=== PATIENT | male | born 1955 | race Caucasian/White ===

== ENCOUNTER 2022-11-10 11:01 | Observation (INO) | payer MEDICARE, OTHER ==
[2022-11-10] MEDS ORDERED: ONDANSETRON 4 MG/2 ML VIAL IVP STA (12:06)
[2022-11-10] MEDS ORDERED: KETOROLAC 15 MG/ML 1 ML VIAL IVP STA ×2 (12:06→17:23)
--- NOTE | 2022-11-10 12:12 | ED ---
General Adult HPI - General Chief complaint: Nausea/Vomiting/Diarrhea Stated complaint: Congestions, nausea, Time Seen by Provider: 11/10/22 11:31 Source: patient, RN notes reviewed, old records reviewed Mode of arrival: ambulatory Limitations: no limitations - History of Present Illness Initial comments: This is a nontoxic appearing 67-year-old male that presents to the emergency room sent by urgent care for complaints of nausea, vomiting, abdominal fullness, back pain, cough and shortness of breath that started today. Patient states he just returned from a vacation in [place] Tuesday and had a 7 hour flight. States he did wear compression socks. Does have left leg swelling but states he normally has bilateral lower extremity swelling. Denies any chest pain. No fevers. No known sick contacts. -: days(s) (1) Location: back, abdomen Severity scale (1-10): 5 Consistency: constant Improves with: none Associated Symptoms: cough, nausea/vomiting, shortness of breath Treatments Prior to Arrival: other (sent by urgent care) - Related Data Home Medications Medication Instructions Recorded Confirmed No Known Home Medications 11/10/22 11/10/22 Allergies Allergy/AdvReac Type Severity Reaction Status Date / Time No Known Allergies Allergy Verified 11/10/22 15:47 Review of Systems ROS Statement: Those systems with pertinent positive or pertinent negative responses have been documented in the HPI. ROS Other: All systems not noted in ROS Statement are negative. Past Medical History Past Medical History: No Reported History History of Any Multi-Drug Resistant Organisms: None Reported Past Surgical History: No Surgical Hx Reported Past Psychological History: No Psychological Hx Reported Smoking Status: Never smoker Past Alcohol Use History: Occasional Past Drug Use History: None Reported General Exam Limitations: no limitations General appearance: alert, in no apparent distress Head exam: Present: atraumatic Eye exam: Present: normal appearance. Absent: scleral icterus, conjunctival injection, periorbital swelling, periorbital tenderness ENT exam: Present: mucous membranes moist Neck exam: Present: full ROM. Absent: tenderness, meningismus Respiratory exam: Present: normal lung sounds bilaterally. Absent: respiratory distress, accessory muscle use Cardiovascular Exam: Present: regular rate GI/Abdominal exam: Present: soft, normal bowel sounds. Absent: distended, tenderness, guarding, rebound, rigid Extremities exam: Present: normal capillary refill, pedal edema (Bilateral lower extremity swelling left greater than right no tenderness.). Absent: calf tenderness Left Lower Leg exam: Present: full ROM, swelling. Absent: tenderness Ankle exam: Present: swelling Foot/Toe exam: Present: swelling Neurovascular tendon exam: Present: no vascular compromise. Absent: abnormal cap refill, extremity cold to touch, pallor, foot drop Back exam: Present: normal inspection, full ROM. Absent: tenderness, CVA tenderness (R), CVA tenderness (L), rash noted Neurological exam: Present: alert, oriented X3 Psychiatric exam: Present: normal affect, normal mood Skin exam: Present: warm, dry, normal color. Absent: cyanosis, diaphoretic, petechiae, pallor Course Vital Signs 11/10/22 11/10/22 11/10/22 11:07 12:13 14:25 Temperature 97.3 F L Pulse Rate 80 81 82 Respiratory 16 19 19 Rate Blood Pressure 178/121 176/92 165/91 O2 Sat by Pulse 96 96 98 Oximetry 11/10/22 16:50 Temperature 97.8 F Pulse Rate 83 Respiratory 18 Rate Blood Pressure 174/105 O2 Sat by Pulse 96 Oximetry EKG Findings - EKG Comments: EKG Findings:: EKG interpreted by me shows sinus rhythm with a ventricular rate of 80, [place] interval 0.179, QRS 0.109, QTC 0.403 Medical Decision Making - Medical Decision Making Patient was given Toradol and Zofran with resolution of his symptoms. CBC shows no evidence of leukocytosis. Electrolytes show blood glucose of 131. D-dimer 1.61. Troponin -0.012. EKG interpreted by me shows sinus rhythm with a ventricular rate of 80, [place] interval 0.179, QRS 0.109, QTC 0.403, left axis deviation. Influenza and coronavirus swabs negative. Chest x-ray interpreted by me shows no focal consolidation, trachea is midline. Radiologist interpretation no acute cardiopulmonary disease or process. Ultrasound of the left lower extremity shows a DVT of the left common femoral vein, femoral vein, popliteal vein and proximal calf veins. Due to patient's positive d-dimer and DVT with complaints of occasional cough, CTA was performed showing a nonobstructing right lower lobe pulmonary embolism. Patient was started on heparin. He is agreeable to admission. Case discussed with Dr. Bhat. Was pt. sent in by a medical professional or institution (, PA, HOME HEALTH PHYSICAL THERAPIST, urgent care, hospital, or [facility]...) When possible be specific @ -[No] Did you speak to anyone other than the patient for history (EMS, parent, family, police, friend...)? What history was obtained from this source @ -[No] Did you review nursing and triage notes (agree or disagree)? Why? @ -[I reviewed and agree with nursing and triage notes] Were old charts reviewed (outside hosp., previous admission, EMS record, old EKG, old radiological studies, urgent care reports/EKG's, [facility] records)? Report findings @ -[No old charts were reviewed] Differential Diagnosis (chest pain, altered mental status, abdominal pain women, abdominal pain men, vaginal bleeding, weakness, fever, dyspnea, syncope, headache, dizziness, GI bleed, back pain, seizure, CVA, palpatations, mental health, musculoskeletal)? @ -Differential Dyspnea: Coronary syndrome, arrhythmia, tamponade, asthma, COPD, pulmonary embolism, pneumonia, pneumothorax, pulmonary effusion, anaphylaxis, diabetic ketoacidosis, flailed chest, pulmonary contusion, diaphragmatic rupture, anemia, neuromuscular, this is not meant to be an all-inclusive list. EKG interpreted by me (3pts min.). @ -[As above] X-rays interpreted by me (1pt min.). @ -yeS as above CT interpreted by me (1pt min.). @ -no U/S interpreted by me (1pt. min.). @ -no What testing was considered but not performed or refused? (CT, X-rays, U/S, labs)? Why? @ -[None] What meds were considered but not given or refused? Why? @ -[None] Did you discuss the management of the patient with other professionals (professionals i.e. , PA, HOME HEALTH PHYSICAL THERAPIST, lab, RT, psych nurse, social services technician, oil heater installer, teacher, booking officer, outsole caser)? Give summary @ -[No] Was smoking cessation discussed for >3mins.? @ -[No] Was critical care preformed (if so, how long)? @ -[No] Were there social determinants of health that impacted care today? How? (Homelessness, low income, unemployed, alcoholism, drug addiction, transportation, low edu. Level, literacy, decrease access to med. care, assisted, rehab)? @ -[No] Was there de-escalation of care discussed even if they declined (Discuss DNR or withdrawal of care, Hospice)? DNR status @ -[No] What co-morbidities impacted this encounter? (DM, HTN, Smoking, COPD, CAD, Cancer, CVA, ARF, Chemo, Hep., AIDS, mental health diagnosis, sleep apnea, morbid obesity)? @ -[None] Was patient admitted / discharged? Hospital course, mention meds given and route, prescriptions, significant lab abnormalities, going to OR and other pertinent info. @ -Admitted Undiagnosed new problem with uncertain prognosis? @ -[No] Drug Therapy requiring intensive monitoring for toxicity (Heparin, Nitro, Insulin, Cardizem)? @ -yes heparin Were any procedures done? @ -[No] Diagnosis/symptom? @ -DVT left leg, right pulmonary embolism Acute, or Chronic, or Acute on Chronic? @ -Acute Uncomplicated (without systemic symptoms) or Complicated (systemic symptoms)? @ -Complicated Side effects of treatment? @ -[No] Exacerbation, Progression, or Severe Exacerbation? @ -[No] Poses a threat to life or bodily function? How? (Chest pain, [place], [place], pneumonia, PE, COPD, DKA, ARF, appy, cholecystitis, CVA, Diverticulitis, Homicidal, S uicidal, threat to staff... and all critical care pts) @ -Yes dvt and pulmonary embolism could result in cardiopulmonary arrest and - Lab Data Result diagrams: 11/10/22 12:20 11/10/22 12:20 Lab Results 11/10/22 11/10/22 11/10/22 Range/Units 12:20 12:20 12:20 WBC 6.5 (3.8-10.6) k/uL RBC 5.59 (4.30-5.90) m/uL Hgb 16.4 (13.0-17.5) gm/dL Hct 49.4 (39.0-53.0) % MCV 88.4 (80.0-100.0) fL MCH 29.4 (25.0-35.0) pg MCHC 33.2 (31.0-37.0) g/dL RDW 13.0 (11.5-15.5) % Plt Count 201 (150-450) k/uL MPV 7.9 Neutrophils % 74 % Lymphocytes % 19 % Monocytes % 5 % Eosinophils % 1 % Basophils % 0 % Neutrophils # 4.8 (1.3-7.7) k/uL Lymphocytes # 1.2 (1.0-4.8) k/uL Monocytes # 0.3 (0-1.0) k/uL Eosinophils # 0.1 (0-0.7) k/uL Basophils # 0.0 (0-0.2) k/uL PT 10.0 (9.0-12.0) sec INR 0.9 (<1.2) APTT 24.7 (22.0-30.0) sec D-Dimer 1.60 H (<0.60) mg/L FEU Sodium 139 (137-145) mmol/L Potassium 4.4 (3.5-5.1) mmol/L Chloride 101 (98-107) mmol/L Carbon Dioxide 27 (22-30) mmol/L Anion Gap 11 mmol/L BUN 17 (9-20) mg/dL Creatinine 0.83 (0.66-1.25) mg/dL Est GFR (CKD-EPI)AfAm >90 (>60 ml/min/1.73 sqM) Est GFR (CKD-EPI)NonAf >90 (>60 ml/min/1.73 sqM) Glucose 131 H (74-99) mg/dL Plasma Lactic Acid Chuck (0.7-2.0) mmol/L Calcium 9.0 (8.4-10.2) mg/dL Total Bilirubin 0.6 (0.2-1.3) mg/dL AST 25 (17-59) U/L ALT 23 (4-49) U/L Alkaline Phosphatase 139 H (38-126) U/L Troponin I (0.000-0.034) ng/mL Total Protein 7.7 (6.3-8.2) g/dL Albumin 4.4 (3.5-5.0) g/dL Amylase 47 (30-110) U/L Lipase 101 (23-300) U/L Influenza Type A (PCR) (Not Detectd) Influenza Type B (PCR) (Not Detectd) RSV (PCR) (Not Detectd) SARS-CoV-2 (PCR) (Not Detectd) 11/10/22 11/10/22 11/10/22 Range/Units 12:20 12:20 12:20 WBC (3.8-10.6) k/uL RBC (4.30-5.90) m/uL Hgb (13.0-17.5) gm/dL Hct (39.0-53.0) % MCV (80.0-100.0) fL MCH (25.0-35.0) pg MCHC (31.0-37.0) g/dL RDW (11.5-15.5) % Plt Count (150-450) k/uL MPV Neutrophils % % Lymphocytes % % Monocytes % % Eosinophils % % Basophils % % Neutrophils # (1.3-7.7) k/uL Lymphocytes # (1.0-4.8) k/uL Monocytes # (0-1.0) k/uL Eosinophils # (0-0.7) k/uL Basophils # (0-0.2) k/uL PT (9.0-12.0) sec INR (<1.2) APTT (22.0-30.0) sec D-Dimer (<0.60) mg/L FEU Sodium (137-145) mmol/L Potassium (3.5-5.1) mmol/L Chloride (98-107) mmol/L Carbon Dioxide (22-30) mmol/L Anion Gap mmol/L BUN (9-20) mg/dL Creatinine (0.66-1.25) mg/dL Est GFR (CKD-EPI)AfAm (>60 ml/min/1.73 sqM) Est GFR (CKD-EPI)NonAf (>60 ml/min/1.73 sqM) Glucose (74-99) mg/dL Plasma Lactic Acid Chuck 2.0 (0.7-2.0) mmol/L Calcium (8.4-10.2) mg/dL Total Bilirubin (0.2-1.3) mg/dL AST (17-59) U/L ALT (4-49) U/L Alkaline Phosphatase (38-126) U/L Troponin I <0.012 (0.000-0.034) ng/mL Total Protein (6.3-8.2) g/dL Albumin (3.5-5.0) g/dL Amylase (30-110) U/L Lipase (23-300) U/L Influenza Type A (PCR) Not Detected (Not Detectd) Influenza Type B (PCR) Not Detected (Not Detectd) RSV (PCR) Not Detected (Not Detectd) SARS-CoV-2 (PCR) Not Detected (Not Detectd) Critical Care Time Critical Care Time: Yes Total Critical Care Time: 32 (Heparin for DVT/ PE) Disposition Clinical Impression: Left femoral vein DVT, Pulmonary embolus, right Disposition: ADMITTED IP TO THIS HOSP Decision Date: 11/10/22
[2022-11-10 12:38] LABS: Basophils % (A) 0 %; Eosinophils # (A) 0.1 k/uL (0-0.7); Eosinophils % (A) 1 %; HCT 49.4 % (39.0-53.0); HGB 16.4 gm/dL (13.0-17.5); Lymphocytes # (A) 1.2 k/uL (1.0-4.8); Lymphocytes % (A) 19 %; MCH 29.4 pg (25.0-35.0); MCHC 33.2 g/dL (31.0-37.0); MCV 88.4 fL (80.0-100.0); Mean Platelet Volume 7.9; Monocytes # (A) 0.3 k/uL (0-1.0); Monocytes % (A) 5 %; Neutrophils # (A) 4.8 k/uL (1.3-7.7); Neutrophils % (A) 74 %; Platelet Count 201 k/uL (150-450); RBC 5.59 m/uL (4.30-5.90); WBC 6.5 k/uL (3.8-10.6)
--- NOTE | 2022-11-10 12:49 | XR ---
EXAMINATION TYPE: XR chest 2V DATE OF EXAM: 11/10/2022 12:36 PM COMPARISON: None TECHNIQUE: XR chest 2V Frontal and lateral views of the chest. CLINICAL INDICATION:Male, 67 years old with history of abdominal pain; FINDINGS: Lungs/Pleura: There is no evidence of pleural effusion, focal consolidation, or pneumothorax. Pulmonary vascularity: Unremarkable. Heart/mediastinum: Cardiomediastinal silhouette is prominent in size. Musculoskeletal: No acute osseous pathology. IMPRESSION: No acute cardiopulmonary disease/process.
[2022-11-10 12:51] LABS: ALT 23 U/L (4-49); AST 25 U/L (17-59); African American GFR (CKD) >90 (>60 ml/min/1.73 sqM); Albumin 4.4 g/dL (3.5-5.0); Alkaline Phosphatase 139 U/L (38-126); Amylase 47 U/L (30-110); Anion Gap 11 mmol/L; Blood Urea Nitrogen 17 mg/dL (9-20); Carbon Dioxide 27 mmol/L (22-30); Chloride 101 mmol/L (98-107); Glucose 131 mg/dL (74-99); Lipase 101 U/L (23-300); Non-African American GFR(CKD) >90 (>60 ml/min/1.73 sqM); Potassium 4.4 mmol/L (3.5-5.1); Sodium 139 mmol/L (137-145); Total Bilirubin 0.6 mg/dL (0.2-1.3); Total Protein 7.7 g/dL (6.3-8.2)
[2022-11-10 12:56] LABS: INR 0.9 (<1.2)
[2022-11-10 12:57] LABS: Partial Thromboplastin Time 24.7 sec (22.0-30.0)
--- NOTE | 2022-11-10 13:55 | US ---
EXAMINATION TYPE: US venous doppler duplex LE LT DATE OF EXAM: 11/10/2022 12:08 PM COMPARISON: NONE CLINICAL INDICATION: Male, 67 years old with history of r/o dvt swelling; Swelling x 8 days. No hx of DVT. Patient does not take blood thinners. SIDE PERFORMED: Left TECHNIQUE: The lower extremity deep venous system is examined utilizing real time linear array sonog fawn with graded compression, doppler sonography and color-flow sonography. VESSELS IMAGED: Common Femoral Vein Deep Femoral Vein Greater Saphenous Vein * Femoral Vein Popliteal Vein Small Saphenous Vein * Proximal Calf Veins (* superficial vessels) Left Leg: Color defect seen within CFV, FV, popliteal vein, and prox calf veins. These veins appear to compress incompletely. IMPRESSION: Deep venous thrombosis of the left common femoral vein, femoral vein, popliteal vein, and proximal ca lf veins. Findings called to and discussed with ASHLIE Nair at 1:52 PM on 11/10/2022.
[2022-11-10] MEDS ORDERED: APIXABAN 5 MG TAB PO STA (14:04)
--- NOTE | 2022-11-10 14:38 | CT ---
CT CHEST FOR PULMONARY EMBOLISM. EXAMINATION TYPE: CT chest angio for PE DATE OF EXAM: 11/10/2022 INDICATION: h/o DVT, r/o PE CT DLP: 675.4 mGycm, Automated exposure control for dose reduction was used. CONTRAST: Patient injected with 100 mL of Isovue 370. COMPARISON: None TECHNIQUE: CT of the chest is performed on a spiral scan at 2 mm thick sections. Study is performed with intravenous contrast timed for evaluation for pulmonary embolism. This will limit additional po rtions of the evaluation. 3-D MIP images reconstructed by the technologist are reviewed on the compu ter in the coronal and sagittal planes. FINDINGS: There is some nonocclusive filling defect within the right lower lobe pulmonary arteries suggestive f or pulmonary embolism.01 No mediastinal or hilar adenopathy enlarged by CT criteria is evident. The ascending aorta diameter at the level of the main pulmonary artery is 3.6 cm. The main pulmonary artery diameter at the bifur cation is 2.6 cm. Lung windows are clear. Limited CT section through the upper abdomen. Gallstones are noted. IMPRESSIONS: 1. 1. Nonobstructing right lower lobe pulmonary embolism.
[2022-11-10] MEDS ORDERED: HEPARIN SODIUM 1,000 UN/ML (10ML VL) IV PRN (14:42)
[2022-11-10] MEDS ORDERED: HEPARIN SODIUM 1,000 UN/ML (10ML VL) IV ONE (14:42)
[2022-11-10] MEDS ORDERED: NALOXONE 0.4 MG/ML 1 ML VIAL IV PRN (14:55)
[2022-11-10] MEDS: HEPARIN SOD,PORK IN 0.45% NACL 25,000 UNIT in 0.45% NACL 1 250ML.BAG IV SCH (15:00)
[2022-11-10] MEDS ORDERED: ACETAMINOPHEN TAB 325 MG TAB PO PRN (15:06)
--- NOTE | 2022-11-10 18:56 | P.HPIM ---
History of Present Illness H&P Date: 11/10/22 67-year-old male with no significant past medical history presents ED for left lower extremity swelling, chest pain and nausea and vomiting since returning from his trip to [facility] on Tuesday. Patient reports a 7 hour flight. He reports left lower extremity swelling that has been ongoing for the past week. He reports some pain in his calf. Today he started to experience back pain, nausea and chest pain which prompted him to come to the ED. His pain is currently 5 out of 10 in severity. He denies any headache, vomiting, fever or chills, cough, shortness of breath, palpitations, changes in urination or bowel habits. No changes in appetite or weight. He denies any dizziness, numbness/weakness/tingling of the extremities. In the ED, is noted to be hypertensive with BP as high as 176/102. CBC was unremarkable. D-dimer was elevated at 1.6. Correlation panel within normal limits. CMP showed glucose 131 and alkaline phosphatase 139. Troponin was less than 0.012. Amylase and lipase was negative. Influenza, RSV and COVID-[address] chest showed nonobstructing right lower lobe pulmonary embolus. Left lower extremity Doppler showed DVT of the left common femoral vein, femoral vein, popliteal vein and proximal calf veins. Chest x-ray was negative. EKG showed sinus rhythm. Patient is admitted for treatment of PE and DVT. Pertinent positives and negatives as discussed in HPI, a complete review of systems was performed and all other systems are negative. General: non toxic, no distress, appears at stated age Derm: warm, dry Head: atraumatic, normocephalic, symmetric Eyes: EOMI, no lid lag, anicteric sclera Cardiovascular: S1S2 reg, no murmur Lungs: CTA bilateral, no rhonchi, no rales , no accessory muscle use Ext: no gross muscle atrophy, significant left lower extremity edema, no contractures Neuro: no focal neuro deficits Psych: Alert, oriented, appropriate affect Pulmonary embolus DVT Morbid obesity Based on my assessment of this patient, this patient meets a high complexity level of care. Patient has an acute diagnosis of extensive DVT and PE that poses a threat to life or bodily function. Given his recent 7 hour flight this is likely provoked PE. He reports no family history of clotting disorder. He does not smoke cigarettes. Patient will be continued on a heparin drip at 18 units per kilogram per hour. Toradol 60 mg IV every 6 hours as needed for pain. Obtain echocardiogram. Order hemoglobin A1c and lipid panel. Anticipate discharge home tomorrow if workup is benign and his pain is well-controlled. Heparin drip for DVT prophylaxis. Patient names his decision maker if he can't make decisions for himself. Patient would like to be full code. I have reviewed the following marketing operations consultant notes: None. I have reviewed the results of the following tests: CBC was unremarkable. D-dimer was elevated at 1.6. Correlation panel within normal limits. CMP showed glucose 131 and alkaline phosphatase 139. Troponin was less than 0.012. Amylase and lipase was negative. Influenza, RSV and COVID-[address] chest showed nonobstructing right lower lobe pulmonary embolus. Left lower extremity Doppler showed DVT of the left common femoral vein, femoral vein, popliteal vein and proximal calf veins. I have ordered the following tests: Hemoglobin A1c and lipid panel. APTT. Echocardiogram. I have discussed the care of this patient with the following independent historian: None. I have independently interpreted the following test below: Chest x-ray was negative. EKG showed sinus rhythm. I have discussed the management of this patient with the following physician: Case was discussed with the ED physician and decision made to admit the patient for treatment and workup of PE and DVT. This patient has a high risk of morbidity due to the following reasons: Patient is currently on heparin drip which involves daily monitor of APTT. Past Medical History Past Medical History: No Reported History History of Any Multi-Drug Resistant Organisms: None Reported Past Surgical History: No Surgical Hx Reported Past Anesthesia/Blood Transfusion Reactions: No Reported Reaction Past Psychological History: No Psychological Hx Reported Smoking Status: Never smoker Past Alcohol Use History: Occasional Past Drug Use History: None Reported Medications and Allergies Home Medications Medication Instructions Recorded Confirmed Type No Known Home Medications 11/10/22 11/10/22 History Allergies Allergy/AdvReac Type Severity Reaction Status Date / Time No Known Allergies Allergy Verified 11/10/22 15:47 Physical Exam Vitals: Vital Signs Temp Pulse Pulse Resp BP BP Pulse Ox 11/10/22 18:30 166/97 11/10/22 16:53 98.2 F 87 18 176/102 96 11/10/22 16:50 97.8 F 83 18 174/105 96 11/10/22 14:25 82 19 165/91 98 11/10/22 12:13 81 19 176/92 96 11/10/22 11:07 97.3 F L 80 16 178/121 96 Intake and Output 11/10/22 11/10/22 11/10/22 06:59 14:59 22:59 Intake Total 118 Balance 118 Intake: Oral 118 Other: Weight 117.934 kg 117.934 kg Results CBC & Chem 7: 11/10/22 12:20 11/10/22 12:20 Labs: Abnormal Lab Results - Last 24 Hours (Table) 11/10/22 11/10/22 Range/Units 12:20 12:20 D-Dimer 1.60 H (<0.60) mg/L FEU Glucose 131 H (74-99) mg/dL Alkaline Phosphatase 139 H (38-126) U/L Thrombosis Risk Factor Assmnt - Choose All That Apply Any of the Below Risk Factors Present?: Yes Each Factor Represents 1 point: Obesity (BMI >25) Other Risk Factors: Yes Each Risk Factor Represents 2 Points: Age 61-74 years Other congenital or acquired thrombophilia - If yes, enter type in comment: No Thrombosis Risk Factor Assessment Total Risk Factor Score: 3 Thrombosis Risk Factor Assessment Level: Moderate Risk
[2022-11-10] MEDS ORDERED: Apixaban Starter Pk for VTE 5 MG TAB PO SCH (21:00)
[2022-11-10] MEDS: KETOROLAC 15 MG/ML 1 ML VIAL IVP PRN (22:52)
[2022-11-11] MEDS: HEPARIN SOD,PORK IN 0.45% NACL 25,000 UNIT in 0.45% NACL 1 250ML.BAG IV SCH (04:50)
[2022-11-11] MEDS: KETOROLAC 15 MG/ML 1 ML VIAL IVP PRN ×2 (06:36→14:26)
[2022-11-11] MEDS ORDERED: APIXABAN 5 MG TAB PO SCH (09:45)
[2022-11-11 11:41] LABS: Chol/HDL Ratio 3.25 Ratio; LDL Cholesterol,Calculated 93.6 mg/dL (0.0-131.0); VLDL Calculation 13.02 mg/dL (5.00-40.00)
[2022-11-11 12:19] LABS: Basophils # (A) 0.01 X 10*3/uL (0.00-0.10); Basophils % (A) 0.1 %; Eosinophils # (A) 0.01 X 10*3/uL (0.04-0.35); Eosinophils % (A) 0.1 %; HCT 46.3 % (39.6-50.0); HGB 15.7 g/dL (13.0-17.0); Immature Grans, Automated 0.8 %; Lymphocytes # (A) 0.86 X 10*3/uL (0.90-5.00); Lymphocytes % (A) 9.5 %; MCH 30.2 pg (27.0-32.0); MCHC 33.9 g/dL (32.0-37.0); Monocytes # (A) 0.68 X 10*3/uL (0.20-1.00); Monocytes % (A) 7.5 %; NRBC Per 100 WBC 0 /100 WBCS (0.0-0.0); Neutrophils # (A) 7.46 X 10*3/uL (1.80-7.70); Platelet Count 173 X 10*3/uL (140-440); RDW 12.9 % (11.5-14.5); WBC 9.09 X 10*3/uL (4.50-10.00)
--- NOTE | 2022-11-11 12:50 | CA ---
Transthoracic Echo Report Name: Chalo Taveras Age: 67 Gender: M : 1955 Exam Date: 11/11/2022 07:24 Exam Location: [facility] Ht (in): 74 Wt (lb): 260 Ordering Physician: Virginia Patel MD Attending/Referring Phys: Sas Developer Eamon Navarro RDCS Procedure CPT: Indications: PE Cardiac Hx: Obesity Technical Quality: Fair Contrast 1: Total Dose (mL): Contrast 2: Total Dose (mL): MEASUREMENTS (Male / Female) Normal Values 2D ECHO LV Diastolic Diameter PLAX 3.9 cm 4.2 - 5.9 / 3.9 - 5.3 cm LV Systolic Diameter PLAX 2.4 cm LV Fractional Shortening PLAX 38.9 % IVS Diastolic Thickness 1.1 cm 0.6 - 1.0 / 0.6 - 0.9 cm IVS Systolic Thickness 1.8 cm LVPW Diastolic Thickness 1.4 cm 0.6 - 1.0 / 0.6 - 0.9 cm LV Relative Wall Thickness 0.6 RV Internal Dim ED PLAX 4.3 cm LVOT Diameter 2.2 cm LA Systolic Diameter LX 3.7 cm 3.0 - 4.0 / 2.7 - 3.8 cm LV Diastolic Volume MOD BP 109.0 cm??? 67 - 155 / 56 - 104 cm??? LV Systolic Volume MOD BP 54.7 cm??? 22 - 58 / 19 - 49 cm??? LV Ejection Fraction MOD BP 49.8 % >= 55 % LV Stroke Volume MOD BP 54.3 cm??? LV Diastolic Volume MOD 4C 105.3 cm??? LV Systolic Volume MOD 4C 51.3 cm??? LV Ejection Fraction MOD 4C 51.3 % LV Stroke Volume MOD 4C 54.1 cm??? LV Diastolic Length 4C 7.8 cm LV Systolic Length 4C 6.6 cm LV Diastolic Volume MOD 2C 107.3 cm??? LV Systolic Volume MOD 2C 52.9 cm??? LV Ejection Fraction MOD 2C 50.7 % LV Stroke Volume MOD 2C 54.4 cm??? LV Diastolic Length 2C 8.2 cm LV Systolic Length 2C 7.5 cm Ascending Aorta Diameter 3.3 cm M-MODE Aortic Root Diameter MM 3.2 cm LA Systolic Diameter MM 4.2 cm LA Ao Ratio MM 1.3 AV Cusp Separation MM 2.1 cm DOPPLER AV Peak Velocity 118.9 cm/s AV Peak Gradient 5.7 mmHg MV Deceleration Emery 339.9 cm/s??? MR Peak Velocity 103.4 cm/s MR Peak Gradient 4.3 mmHg Mitral E Point Velocity 64.4 cm/s Mitral A Point Velocity 86.7 cm/s Mitral E to A Ratio 0.7 MV Deceleration Time 189.4 ms MV E' Velocity 7.8 cm/s Mitral E to MV E' Ratio 8.3 TR Peak Velocity 128.4 cm/s TR Peak Gradient 6.6 mmHg Right Ventricular Systolic Press 14.6 mmHg PV Peak Velocity 104.2 cm/s PV Peak Gradient 4.3 mmHg FINDINGS Left Ventricle Left ventricular ejection fraction is estimated at 55-60 %. Borderline left ventricular hypertrophy. Grade 1 diastolic dysfunction. Normal basal systolic function. Right Ventricle Normal right ventricular size and function. Right Atrium Normal right atrial size. Left Atrium Mild left atrial dilatation. Mitral Valve Mitral valve thickened. No mitral stenosis. Trace to mild mitral regurgitation. Aortic Valve Trileaflet aortic valve. No aortic valve stenosis or regurgitation. Tricuspid Valve Mild tricuspid regurgitation. Pulmonic Valve Pulmonic valve not well visualized. Pericardium Normal pericardium. No pericardial effusion. Echo free space anterior to the right ventricle likely represents a fat pad. Aorta Normal size aortic root and proximal ascending aorta. CONCLUSIONS Left ventricular ejection fraction 55-60% Borderline increased left ventricular wall thickness Normal right ventricular size and function Mildly dilated left atrium Trace to mild mitral regurgitation Mild tricuspid regurgitation No pericardial effusion Previewed by: Dr. Hemanth Fontaine DO (Electronically Signed) Final Date: 11 Nov 2022 12:49
[2022-11-11] MEDS ORDERED: hydroCHLOROthiazide 25 MG TAB PO SCH (13:30)
[2022-11-11 14:40] VITALS: BP 138/81; PULSE 107; RESP 20; TEMP 99.7
--- NOTE | 2022-11-11 14:41 | P.DS ---
Providers Date of admission: 11/10/22 15:46 Expected date of discharge: 11/11/22 Attending physician: Federico Aquino MD Primary care physician: Stated None Hospital Course: 67-year-old male with no significant past medical history presents ED for left lower extremity swelling, chest pain and nausea and vomiting since returning from his trip to [facility] on Tuesday. Patient reports a 7 hour flight. He reports left lower extremity swelling that has been ongoing for the past week. He reports some pain in his calf. Today he started to experience back pain, nausea and chest pain which prompted him to come to the ED. His pain is currently 5 out of 10 in severity. He denies any headache, vomiting, fever or chills, cough, shortness of breath, palpitations, changes in urination or bowel habits. No changes in appetite or weight. He denies any dizziness, numbness/weakness/tingling of the extremities. In the ED, is noted to be hypertensive with BP as high as 176/102. CBC was unremarkable. D-dimer was elevated at 1.6. Correlation panel within normal limits. CMP showed glucose 131 and alkaline phosphatase 139. Troponin was less than 0.012. Amylase and lipase was negative. Influenza, RSV and COVID-[address] chest showed nonobstructing right lower lobe pulmonary embolus. Left lower extremity Doppler showed DVT of the left common femoral vein, femoral vein, popliteal vein and proximal calf veins. Chest x-ray was negative. EKG showed sinus rhythm. Patient is admitted for treatment of PE and DVT. He was started on the Heparin drip and switched to Eliquis for discharge. Echocardiogram was ordered which showed preserved EF with G1DD. His BP was elevated in the 160-170s SBP for which he was started on HCTZ 25 mg PO QD. Lipid panel was within normal limits. A1c was 5.6. Patient was seen and examined this morning with his at bedside. He reports significant improvement in his chest pain. He denies any shortness of breath. Lower extremity swelling is slightly improved. Patient will be discharged home with the following instructions: Diet: Low salt Follow up with your PCP within 1-2 days of discharge. Take all medications as advised. Pertinent studies include echocardiogram, CT chest, chest x-ray, venous Doppler. General: non toxic, no distress, appears at stated age Derm: warm, dry Head: atraumatic, normocephalic, symmetric Eyes: EOMI, no lid lag, anicteric sclera Cardiovascular: S1S2 reg, no murmur Lungs: CTA bilateral, no rhonchi, no rales , no accessory muscle use Ext: no gross muscle atrophy, significant left lower extremity edema, no contractures Neuro: no focal neuro deficits Psych: Alert, oriented, appropriate affect Discharge diagnosis: Pulmonary embolus DVT Morbid obesity Hypertension, new diagnosis HFpEF, euvolemic, not in acute exacerbation The complex discharge took 35 minutes to complete. Patient Condition at Discharge: Stable Plan - Discharge Summary Discharge Rx Participant: No New Discharge Prescriptions: New HYDROcodone/APAP 5-325MG [[place] 5-325] 1 tab PO Q6HR PRN 3 Days #12 tab PRN Reason: Pain Apixaban [Eliquis Starter Pack (for VTE)] 5 - 10 mg PO DIRECTED 30 Days #1 each hydroCHLOROthiazide [Hydrodiuril] 25 mg PO DAILY #30 tab Ketorolac [Toradol] 10 mg PO Q6HR PRN #20 tab PRN Reason: Pain Discharge Medication List Apixaban [Eliquis Starter Pack (for VTE)] 5 - 10 mg PO DIRECTED 30 Days #1 each 11/11/22 [Rx] HYDROcodone/APAP 5-325MG [[place] 5-325] 1 tab PO Q6HR PRN 3 Days #12 tab 11/11/22 [Rx] Ketorolac [Toradol] 10 mg PO Q6HR PRN #20 tab 11/11/22 [Rx] hydroCHLOROthiazide [Hydrodiuril] 25 mg PO DAILY #30 tab 11/11/22 [Rx] Follow up Appointment(s)/Referral(s): Cristiano Valdivia MD [REFERRING] - 1 Week None,Stated [Primary Care Provider] - 1-2 days Activity/Diet/Wound Care/Special Instructions: Diet: Low salt Follow up with your PCP within 1-2 days of discharge. Take all medications as advised. Discharge Disposition: HOME SELF-CARE
== END 2022-11-11 15:34 | disposition home or self-care (01) ==
LOC: EC 11:01 → 6NMEDSUR 15:46
PROVIDERS: ADMIT Student in an Organized Health Care Education/Training Program; ATTEND Student in an Organized Health Care Education/Training Program
DX: I26.99 Other pulmonary embolism without acute cor pulmonale (principal); I82.412 Acute embolism and thrombosis of left femoral vein; I82.432 Acute embolism and thrombosis of left popliteal vein; I82.4Y2 Acute embolism and thrombosis of unspecified deep veins of left proximal lower extremity; K80.20 Calculus of gallbladder without cholecystitis without obstruction; I08.1 Rheumatic disorders of both mitral and tricuspid valves; I11.0 Hypertensive heart disease with heart failure; I50.30 Unspecified diastolic (congestive) heart failure; E66.9 Obesity, unspecified; Z20.822 Contact with and (suspected) exposure to COVID-19; Z68.33 Body mass index [BMI] 33.0-33.9, adult
CPT/HCPCS: 96376 ×2; 96374; 96375; 99291; 36415; 93005; 93306; 85379; 80061; 80053; 82150; 83605; 83690; 84484; 85025 ×2; 85610; 85730 ×2; 83036; 87636; 71046; 93971; 71275; G0378 ×2; J2405; J1644 ×3; J1885 ×2; Q9967

== ENCOUNTER → 2023-04-29 | Outpatient (CLI) | payer MEDICARE ==
--- NOTE | 2023-04-29 16:36 | US ---
EXAMINATION TYPE: US venous doppler duplex LE BI DATE OF EXAM: 04/29/2023 4:27 PM COMPARISON: NONE CLINICAL INDICATION: Male, 67 years old with history of I82.529 DVT; History of DVT left leg, PE. Pat ient currently on blood thinner SIDE PERFORMED: bilateral TECHNIQUE: The lower extremity deep venous system is examined utilizing real time linear array sonog fawn with graded compression, doppler sonography and color-flow sonography. VESSELS IMAGED: Common Femoral Vein Deep Femoral Vein Greater Saphenous Vein * Femoral Vein Popliteal Vein Small Saphenous Vein * Proximal Calf Veins (* superficial vessels) Right Leg: No evidence of DVT Left Leg: positive for DVT. thready flow with partial compression left femoral vein extending into p opliteal vein IMPRESSION: Left femoral DVT extending into the popliteal vein.
== END | disposition home or self-care (01) ==
LOC: RADUSWWP 15:56
PROVIDERS: ATTEND Internal Medicine Hematology & Oncology
DX: I82.523 Chronic embolism and thrombosis of iliac vein, bilateral (principal); I82.412 Acute embolism and thrombosis of left femoral vein; Z79.01 Long term (current) use of anticoagulants
CPT/HCPCS: 93970

== ENCOUNTER → 2023-08-29 | Outpatient (CLI) | payer MEDICARE ==
--- NOTE | 2023-08-29 13:02 | US ---
EXAMINATION TYPE: US venous doppler duplex LE LT DATE OF EXAM: 08/29/2023 12:33 PM COMPARISON: US CLINICAL INDICATION: Male, 68 years old with history of I82.5Z9 CHR EMBLSM AND THOMBOS UNSP; F/U left leg DVT SIDE PERFORMED: Left TECHNIQUE: The lower extremity deep venous system is examined utilizing real time linear array sonog fawn with graded compression, doppler sonography and color-flow sonography. VESSELS IMAGED: Common Femoral Vein Deep Femoral Vein Greater Saphenous Vein * Femoral Vein Popliteal Vein Small Saphenous Vein * Proximal Calf Veins (* superficial vessels) Left Leg: Probable non-occluding thrombus left leg from proximal femoral vein to popliteal veins- sh owing some improvement in color flow when compared to prior. Some incomplete compression is evident s uch as within the proximal, mid and distal left femoral vein. IMPRESSION: Chronic thrombus with narrowing of the lumen. There is incomplete occlusion evident.
== END | disposition home or self-care (01) ==
LOC: RADUSWWP 12:06
PROVIDERS: ATTEND Internal Medicine Hematology & Oncology
DX: I82.502 Chronic embolism and thrombosis of unspecified deep veins of left lower extremity (principal); I26.99 Other pulmonary embolism without acute cor pulmonale; D68.59 Other primary thrombophilia; Z83.2 Family history of diseases of the blood and blood-forming organs and certain disorders involving the immune mechanism